=== PATIENT | female | born 1955 | race Caucasian/White ===

== ENCOUNTER → 2017-03-03 | Outpatient (CLI) | payer BC ==
[~2017-03-03] MED LIST: CLARITIN 10MG T10 MG PO; CLINDAMYCIN HC300 MG PO; IBUPROFEN800 MG PO; NORCO 10-325 T1 EACH PO; VITAMIN C 500500 MG PO; VITAMIN D2000 UNIT PO; VITAMIN D250000 UNIT PO
[2017-03-03 11:49] LABS: HEMOGLOBIN 14.6 gm/dl (12.3-15.3); RED BLOOD COUNT 4.79 M/UL (4.00-5.10); WHITE BLOOD COUNT 5.1 K/UL (4.5-11.0)
[2017-03-03 12:04] LABS: BUN/CREATININE RATIO 25 (0-10)
== END ==
LOC: OPSV2 10:48
PROVIDERS: Podiatrist Foot & Ankle Surgery
DX: Z01.810 Encounter for preprocedural cardiovascular examination (principal); Z01.812 Encounter for preprocedural laboratory examination; S92.354A Nondisplaced fracture of fifth metatarsal bone, right foot, initial encounter for closed fracture
CPT/HCPCS: 36415; 80048; 85027; 93005

== ENCOUNTER → 2020-09-25 | Outpatient (CLI) | payer OTHER ==
[~2020-09-25] MED LIST changes: +ASPIRIN325 MG PO; +NAPROXEN 250 M250 MG PO; +VITAMIN C500 M4 PO; -VITAMIN D2000 UNIT PO; +VITAMIN D3125 MCG PO; +VITAMIN D31250 MCG PO
[2020-09-25 13:30] LABS: HEMOGLOBIN 14.7 gm/dl (12.3-15.3); RED BLOOD COUNT 4.92 M/UL (4.00-5.10); WHITE BLOOD COUNT 5.3 K/UL (4.5-11.0)
[2020-09-25 13:51] LABS: BUN/CREATININE RATIO 26 (0-10)
== END ==
LOC: OPSV2 12:12
PROVIDERS: Podiatrist Foot & Ankle Surgery
DX: Z01.812 Encounter for preprocedural laboratory examination (principal); M19.072 Primary osteoarthritis, left ankle and foot
CPT/HCPCS: 36415; 80048; 85025

== ENCOUNTER → 2020-09-26 | Day surgery (SDC) | payer OTHER ==
[~2020-09-26] VITALS: Ht 157.5 cm; Wt 76.2 kg
== END | disposition home or self-care (01) ==
LOC: OR 06:58
DX: M19.072 Primary osteoarthritis, left ankle and foot (principal); G89.29 Other chronic pain; K21.9 Gastro-esophageal reflux disease without esophagitis; F41.9 Anxiety disorder, unspecified; Z88.2 Allergy status to sulfonamides; Z88.0 Allergy status to penicillin; Z79.899 Other long term (current) drug therapy
CPT/HCPCS: 36415; 73620; 73630; 76000; C1713; J1100; J1885; J2001; J2250; J2370; J2405; J2704; J2795; J3010; J3370; J7120; Q4133

== ENCOUNTER → 2020-10-28 | Outpatient (CLI) | payer OTHER | LOC: KOH-I 15:43 | DX: S92.202D Fracture of unspecified tarsal bone(s) of left foot, subsequent encounter for fracture with routine healing (principal); X58.XXXA Exposure to other specified factors, initial encounter | CPT/HCPCS: 73630 ==

== ENCOUNTER → 2020-11-24 | Outpatient (CLI) | payer OTHER | LOC: KOH-I 08:42 | DX: Z47.89 Encounter for other orthopedic aftercare (principal); Z98.1 Arthrodesis status | CPT/HCPCS: 73630 ==

== ENCOUNTER → 2020-12-15 | Outpatient (CLI) | payer MEDICARE | LOC: KOH-I 08:39 | DX: M24.675 Ankylosis, left foot (principal); M19.072 Primary osteoarthritis, left ankle and foot; Z98.890 Other specified postprocedural states | CPT/HCPCS: 73630 ==

== ENCOUNTER → 2021-01-05 | Outpatient (CLI) | payer MEDICARE | LOC: KOH-I 08:36 | DX: M24.675 Ankylosis, left foot (principal); Z98.890 Other specified postprocedural states | CPT/HCPCS: 73630 ==

== ENCOUNTER → 2021-06-10 | Outpatient (CLI) | payer MEDICARE | LOC: US 12:35 | DX: M79.621 Pain in right upper arm (principal); R20.8 Other disturbances of skin sensation; G54.0 Brachial plexus disorders | CPT/HCPCS: 76882 ==

== ENCOUNTER → 2021-12-22 | Outpatient (CLI) | payer MEDICARE | LOC: MAMO 12:58 | DX: Z12.31 Encounter for screening mammogram for malignant neoplasm of breast (principal); Z90.710 Acquired absence of both cervix and uterus | CPT/HCPCS: 77063; 77067 ==